=== PATIENT | male | born 1985 | race Caucasian/White ===

== ENCOUNTER 2023-08-29 15:00 | Emergency (ER) | payer BC, SELFPAY ==
--- NOTE | ~2023-08-29 | XR_ITS ---
EXAMINATION: XR ankle RT min 3V DATE: 08/29/2023 15:18 INDICATION: Right ankle injury and pain and swelling. TECHNIQUE: 4 views of right ankle were obtained. COMPARISON: None. FINDINGS: Bone alignment is normal. No fracture. Joint spaces are normal. There are enthesophytes at the posterior and plantar aspects of calcaneal tuberosity. There is ankle soft tissue swelling. IMPRESSION: 1. No fracture. Reviewed, dictated and finalized at location [facility]. [facility] IMPRESSION: 1. No fracture.
--- NOTE | 2023-08-29 15:11 | ED.LOWEXIN ---
HPI - Extremity Injury (Lower) General Chief Complaint: Extremity Injury, Lower Stated Complaint: R ANKLE INJURY Time Seen by Provider: 08/29/23 15:11 Source: patient Mode of arrival: ambulatory Limitations: no limitations History of Present Illness HPI Narrative: 38-year-old male presents with complaint of right ankle pain and swelling. States yesterday after leaving hockey game he twisted ankle in hole. Reports that he cannot bear any weight on to right ankle. Came to urgent care today hopping on left. Distal neurovascularly intact. Range of motion decreased due to pain. Systems reviewed and negative except as noted above. Related Data Home Medications Medication Instructions Recorded Confirmed No Home Medications 08/29/23 08/29/23 Allergies Allergy/AdvReac Type Severity Reaction Status Date / Time No Known Allergies Allergy Verified 08/29/23 15:14 Review of Systems Review of Systems: CONSTITUTIONAL: Denies fever, chills, or sweats. EYES: Denies visual changes, redness, or discharge. ENT: Denies rhinorrhea, congestion, sore throat, or otalgia. CARDIOVASCULAR: Denies chest pain, palpitations, or edema. RESPIRATORY: Denies cough or dyspnea. GASTROINTESTINAL: Denies abdominal pain, nausea, vomiting, or diarrhea. GENITOURINARY: Denies dysuria or hematuria. SKIN: Denies rash or itching. MUSCULOSKELETAL: Denies back pain. Reports pain and swelling to right ankle. NEUROLOGIC: Denies headache, numbness, or weakness. PSYCHIATRIC: Denies anxiety or depression. All other systems reviewed are negative, except as documented in HPI. PMFSH Comments At time of signature, agree with nursing past medical, surgical, social and family history. There is no relevant family history pertinent to the presenting complaint. Exam Narrative: GENERAL: This is a well-nourished, well-developed patient, in no apparent distress. HEAD: normocephalic, atraumatic. EYES: PERRL. Sclera clear/white. Vision is grossly intact. EARS: External ears normal NOSE: External nose normal NECK: Neck supple, non-tender without lymphadenopathy, masses or thyromegaly. CARDIOVASCULAR: Regular rate and rhythm without murmurs, gallops, or rubs. RESPIRATORY: Clear to auscultation. Breath sounds equal bilaterally. No wheezes, rales, or rhonchi. SKIN: warm, Dry, intact with no suspicious lesions or rash, good texture and turgor. NEURO: awake, alert, and oriented to person, place and time. There were no obvious focal neurologic abnormalities. EXTREMITIES: Significant swelling noted to lateral and medial aspect right ankle with bruising to medial aspect. Tenderness to medial and lateral aspects. Normal extension. Flexion is decreased, patient reports weakness with flexion. tenderness posterior and anterior TFL, deltoid ligament Course Course Level of Care: Express Care Visit Vital Signs Vital signs: Vital Signs Oxygen Delivery Room Air 08/29/23 15:11 Temperature 36.1 C L 08/29/23 15:12 Pulse Rate 84 08/29/23 15:12 Respiratory Rate 16 08/29/23 15:12 Blood Pressure 151/85 H 08/29/23 15:12 Pulse Oximetry 99 08/29/23 15:12 Oxygen Delivery Room Air 08/29/23 15:11 Reviewed MDM - Extremity Injury (Lower) MDM Narrative Medical decision making narrative: Discussed x-ray results with patient. Negative for fracture. Due to significant swelling, decreased range of motion recommend crutches for 1 week. If continues to have pain recommend follow-up with orthopedics for further imaging. Patient is aware of diagnosis, understands and agrees to treatment plan. Anticipatory guidance given. Patient agrees to follow-up as directed and is aware of reasons to seek care at the emergency department. Portions of this record may have been created with voice recognition software Imaging Data My impression: agree with radiologist Radiologist's impression: EXAMINATION: XR ankle RT min 3V DATE: 08/29/2023 15:18 INDICATI
[2023-08-29 15:12] VITALS: BP 151/85; PULSE 84; RESP 16; TEMP 36.1; O2SAT 99
--- NOTE | 2023-08-29 15:40 | PC.NURSE ---
+pms post brian application. pt ambulated well on crutches.
--- NOTE | 2023-08-29 15:41 | PC.NURSE ---
pmd and ortho lists provided to pt
== END 2023-08-29 15:41 | disposition home or self-care (01) ==
PROVIDERS: Emergency Provider Nurse Practitioner Family
DX: S93.401A Sprain of unspecified ligament of right ankle, initial encounter (principal); S96.911A Strain of unspecified muscle and tendon at ankle and foot level, right foot, initial encounter; X50.0XXA Overexertion from strenuous movement or load, initial encounter
CPT/HCPCS: 73610; 99213; G0463